=== PATIENT | male | born 1960 | race African-American/Black ===

== ENCOUNTER 2016-12-15 15:34 | Inpatient (IN) | payer OTHER ==
[2016-12-15 15:53] VITALS: BMI 29.0
--- NOTE | 2016-12-15 19:32 | HP ---
Admission [facility] Chief Complaint: REHAB SERVICES Allergies/Adverse Reactions: Allergies Allergy/AdvReac Type Severity Reaction Status Date / Time No Known Allergies Allergy Verified 12/15/16 19:05 History of Present Illness: 56 Y.O. MAN WITH A 7 YEAR HISTORY OF COCAINE DEPENDENCE IS HERE SEEKING REHAB SERVICES. HE DOES NOT HAVE A SIGNIFICANT PERIOD CLEAN. Exam Limitations: No Limitations - Ebola screening Have you traveled outside of the country in the last 21 days: No Have you had contact with anyone from an Ebola affected area: No Have you been sick,other than usual withdrawal symptoms: No Do you have a fever: No - Review of Systems Constitutional: Night Sweats, Changes in sleep EENT: reports: Blurred Vision Respiratory: reports: No Symptoms reported Cardiac: reports: Chest Pain GI: reports: Diarrhea, Abdominal cramping : reports: No Symptoms Reported Musculoskeletal: reports: Back Pain, Joint Pain, Neck Pain Integumentary: reports: No Symptoms Reported Neuro: reports: No Symptoms reported Endocrine: reports: No Symptoms Reported Hematology: reports: No Symptoms Reported Psychiatric: reports: Orientated x3, Depressed Other Systems: Reviewed and Negative Patient History - Patient Medical History Hx Anemia: No Hx Asthma: No Hx Chronic Obstructive Pulmonary Disease (COPD): No Hx Cancer: No Hx Cardiac Disorders: No Hx Congestive Heart Failure: No Hx Hypertension: Yes Hx Hypercholesterolemia: No Hx Pacemaker: No HX Cerebrovascular Accident: No Hx Seizures: No Hx Dementia: No Hx Diabetes: Yes Hx Gastrointestinal Disorders: No Hx Liver Disease: No Hx Genitourinary Disorders: No Hx Sexually Transmitted Disorders: No (Gonorrhea-treated) Hx Renal Disease (ESRD): No Hx Thyroid Disease: No Hx Human Immunodeficiency Virus (HIV): No Hx Hepatitis C: No Hx Depression: Yes Hx Suicide Attempt: Yes (2002: Attempted to overdose on medications ) Hx Bipolar Disorder: No Hx Schizophrenia: Yes - Patient Surgical History Past Surgical History: No - PPD History Previous Implant?: Yes Results: Needs CXR PPD to be Administered?: No - Reproductive History Patient is a Female of Child Bearing Age (11 -55 yrs old): No - Smoking Cessation Smoking history: Current every day smoker Have you smoked in the past 12 months: Yes Aproximately how many cigarettes per day: 5 Initiated information on smoking cessation: Yes 'Breaking Loose' booklet given: 12/15/16 - Substance & Tx. History Hx Alcohol Use: No Hx Substance Use: Yes Substance Use Type: Cocaine Hx Substance Use Treatment: Yes - Substances Abused Cocaine Route: Smoking Frequency: 3-6 times per week Amount used: $200 Age of first use: 49 Date of Last Use: 12/14/16 Family Disease History - Family Disease History Family Disease History: Diabetes: Father (), Mother (), Heart Disease: Father, Mother Admission Physical Exam [facility] - Vital Signs Vital Signs: Vital Signs - 24 hr 12/15/16 15:52 Temperature 98 F Pulse Rate 97 H Respiratory 18 Rate Blood Pressure 158/96 - Physical General Appearance: Yes: No Apparent Distress, Nourished, Appropriately Dressed HEENTM: Yes: Hearing grossly Normal, Normocephalic, Normal Voice, ALLY Respiratory: Yes: Chest Non-Tender, Lungs Clear, Normal Breath Sounds, No Respiratory Distress, No Accessory Muscle Use Neck: Yes: No masses,lesions,Nodules, Trachea in good position Breast: Yes: Breast Exam Deferred Cardiology: Yes: Regular Rhythm, Regular Rate Abdominal: Yes: Normal Bowel Sounds, Non Tender, Flat, Soft Genitourinary: Yes: Other (No complaints reported) Back: Yes: Normal Inspection Musculoskeletal: Yes: Back pain Extremities: Yes: Normal Inspection, Normal Range of Motion, Non-Tender Neurological: Yes: manufacturing executive II-XII NML intact, Fully Oriented, Normal Mood/Affect, Normal Response Integumentary: Yes: Normal Color, Dry, Warm Lymphatic: Yes: Within Normal Limits - Diagnostic (1) Cocaine dependence, uncomplicated Current Visit: Yes Status: Chronic (2) Osteoarthritis Current Visit: Yes Status: Chronic (3) Tuberculosis, treated Current Visit: Yes Status: Resolved (4) Sciatica Current Visit: Yes Status: Chronic Cleared for Admission [facility] - Detox or Rehab [facility] Level of Care: Observation Bed Claeared for Rehab Admission: Yes [facility] Breath Alcohol Content Breath Alcohol Content: 0 Urine Drug Screen - Results Drug Screen Negative: No Urine Drug Screen Results: JUAN DIEGO-Cocaine, PCP-Phencyclidine
[2016-12-15] MEDS ORDERED: MAGNESIUM CITRATE 300 ML BOTTLE PO PRN (19:41)
[2016-12-15] MEDS ORDERED: MENTHOL/PHENOL 1 EACH UD MM PRN (19:41)
[2016-12-15] MEDS ORDERED: P-EPHED 60MG/TRIPROLIDI 2.5MG TABLET PO PRN (19:41)
[2016-12-15] MEDS ORDERED: guaiFENesin/D-METHORPHAN HB 10 ML UNIT-DOSE CUPS PO PRN (19:41)
[2016-12-15] MEDS ORDERED: ACETAMINOPHEN 325 MG TABLET (FP) PO PRN (19:41)
[2016-12-15] MEDS ORDERED: hydrOXYzine PAMOATE 50 MG CAPSULE (FP) PO PRN (19:41)
[2016-12-15] MEDS ORDERED: MAG HYDROX/AL HYDROX/SIMETH 30 ML UNIT-DOSE CUP PO PRN (19:41)
[2016-12-15] MEDS ORDERED: IBUPROFEN 400 MG TABLET (FP) PO PRN (19:41)
[2016-12-15] MEDS ORDERED: NICOTINE POLACRILEX 2 MG GUM BUC PRN (19:41)
[2016-12-15] MEDS ORDERED: LOPERAMIDE HCL 2 MG CAPSULE PO PRN (19:41)
[2016-12-15] MEDS ORDERED: MAGNESIUM HYDROX 2400MG/30ML ORAL SUSPENSION 30 ML CUP PO PRN (19:41)
[2016-12-15] MEDS ORDERED: cloNIDine HCL 0.1 MG TABLET PO PRN (19:44)
[2016-12-15] MEDS: THIAMINE HCL 100 MG TABLET (FP) PO SCH (21:49)
[2016-12-15] MEDS: diphenhydrAMINE HCL 50 MG CAPSULE PO PRN (21:50)
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
[2016-12-16] MEDS ORDERED: BACITRACIN 15 GM TUBE TOPICAL OINTMENT TP SCH (10:00)
[2016-12-16] MEDS: ASPIRIN 81 MG CHEWABLE TABLETS PO SCH (10:22)
[2016-12-16] MEDS: PRENATAL VITAMINS W/ FOLIC ACID TABLET (FP) PO SCH (10:22)
[2016-12-16 13:13] LABS: MCH 26.9 pg (25.7-33.7); MCHC 31.4 g/dl (32.0-35.9); MEAN CELL VOLUME 85.7 fl (80-96); MEAN PLT VOLUME 8.9 fl (7.5-11.1); PLATELET COUNT 296 K/MM3 (134-434); RDW 13.9 % (11.9-15.9); WHITE BLOOD COUNT 7.2 K/mm3 (4.0-10.0)
[2016-12-16] MEDS: PATIENT'S OWN MEDICATION (NON-FORMULARY) (Sitagliptin Phos/Metformin Hcl [Janumet 50-1,000 PO SCH ×3 (13:32→16:52)
[2016-12-16 13:33] LABS: ALBUMIN 3.2 g/dl (3.4-5.0); ALK PHOS 81 U/L (45-117); ANION GAP 8 (8-16); BILIRUBIN,TOTAL 0.5 mg/dL (0.2-1.0); CALCIUM 9.3 mg/dL (8.5-10.1); CO2 30 mmol/L (21-32); CREATININE 1.4 mg/dL (0.7-1.3); GLUCOSE,RANDOM 204 mg/dL (74-106); SGOT/AST 19 U/L (15-37); SGPT/ALT 31 U/L (12-78); TOT PROT 6.8 g/dl (6.4-8.2)
[2016-12-16 13:39] LABS: HIV 1 & 2 AB NEGATIVE; HIV 1 AGp24 NEGATIVE
--- NOTE | 2016-12-16 14:50 | EKG ---
Test Reason : Blood Pressure : / mmHG Vent. Rate : 081 BPM Atrial Rate : 081 BPM P-R Int : 182 ms QRS Dur : 080 ms QT Int : 378 ms P-R-T Axes : 059 -06 032 degrees QTc Int : 439 ms NORMAL SINUS RHYTHM ST ELEVATION, CONSIDER EARLY REPOLARIZATION, PERICARDITIS, OR INJURY ABNORMAL ECG NO PREVIOUS ECGS AVAILABLE Confirmed by SOFÍA NELSON MD ([id number]) on 12/16/2016 2:49:45 PM Referred By: Confirmed By:SOFÍA NELSON MD
[2016-12-16] MEDS: diphenhydrAMINE HCL 50 MG CAPSULE PO PRN (21:12)
[2016-12-16] MEDS: THIAMINE HCL 100 MG TABLET (FP) PO SCH (21:12)
[2016-12-17] MEDS: PRENATAL VITAMINS W/ FOLIC ACID TABLET (FP) PO SCH (10:31)
[2016-12-17] MEDS: ASPIRIN 81 MG CHEWABLE TABLETS PO SCH (10:32)
[2016-12-17] MEDS: BACITRACIN 0.9 GM PACKET TP SCH (10:32)
--- NOTE | 2016-12-17 13:43 | PN ---
[facility] Progress Note Note: Hx. of HTN not on meds Vital Signs - 24 hr 12/17/16 12/17/16 12/17/16 00:30 03:30 07:02 Temperature 98.6 F Pulse Rate 85 Respiratory 18 18 20 Rate Blood Pressure 152/99 Laboratory Last Values WBC 7.2 K/mm3 (4.0-10.0) 12/15/16 09:30 RBC 4.93 M/mm3 (4.00-5.60) 12/15/16 09:30 Hgb 13.3 GM/dL (11.7-16.9) 12/15/16 09:30 Hct 42.3 % (35.4-49) 12/15/16 09:30 MCV 85.7 fl (80-96) 12/15/16 09:30 MCH 26.9 pg (25.7-33.7) 12/15/16 09:30 MCHC 31.4 g/dl (32.0-35.9) L 12/15/16 09:30 RDW 13.9 % (11.9-15.9) 12/15/16 09:30 Plt Count 296 K/MM3 (134-434) 12/15/16 09:30 MPV 8.9 fl (7.5-11.1) 12/15/16 09:30 Sodium 141 mmol/L (136-145) 12/15/16 09:00 Potassium 4.3 mmol/L (3.5-5.1) 12/15/16 09:00 Chloride 103 mmol/L (98-107) 12/15/16 09:00 Carbon Dioxide 30 mmol/L (21-32) 12/15/16 09:00 Anion Gap 8 (8-16) 12/15/16 09:00 BUN 12 mg/dL (7-18) 12/15/16 09:00 Creatinine 1.4 mg/dL (0.7-1.3) H 12/15/16 09:00 Creat Clearance w eGFR 52.42 (>60) 12/15/16 09:00 POC Glucometer 131 UNITS (()) 12/17/16 06:17 Random Glucose 204 mg/dL (74-106) H 12/15/16 09:00 Calcium 9.3 mg/dL (8.5-10.1) 12/15/16 09:00 Total Bilirubin 0.5 mg/dL (0.2-1.0) 12/15/16 09:00 AST 19 U/L (15-37) 12/15/16 09:00 ALT 31 U/L (12-78) 12/15/16 09:00 Alkaline Phosphatase 81 U/L (45-117) 12/15/16 09:00 Total Protein 6.8 g/dl (6.4-8.2) 12/15/16 09:00 Albumin 3.2 g/dl (3.4-5.0) L 12/15/16 09:00 RPR Titer Nonreactive (NONREACTIVE) 12/15/16 09:00 Hepatitis C Antibody <0.1 s/co ratio (0.0-0.9) 12/15/16 09:30 HIV 1&2 Antibody Screen Negative 12/16/16 09:00 HIV P24 Antigen Negative 12/16/16 09:00 labs noted P : Lisinopril 10mg bid
[2016-12-17] MEDS ORDERED: LISINOPRIL 10 MG TABLET (FP) PO SCH (13:45)
--- NOTE | 2016-12-17 15:40 | EKG ---
Test Reason : Blood Pressure : / mmHG Vent. Rate : 081 BPM Atrial Rate : 081 BPM P-R Int : 192 ms QRS Dur : 080 ms QT Int : 378 ms P-R-T Axes : 055 000 035 degrees QTc Int : 439 ms SINUS RHYTHM WITH PREMATURE SUPRAVENTRICULAR COMPLEXES AND PREMATURE VENTRICULAR COMPLEXES OR FUSION COMPLEXES POSSIBLE LEFT ATRIAL ENLARGEMENT NONSPECIFIC T WAVE ABNORMALITY ABNORMAL ECG WHEN COMPARED WITH ECG OF 16-DEC-2016 04:43, FUSION COMPLEXES ARE NOW PRESENT PREMATURE VENTRICULAR COMPLEXES ARE NOW PRESENT PREMATURE SUPRAVENTRICULAR COMPLEXES ARE NOW PRESENT ST NO LONGER ELEVATED IN LATERAL LEADS Confirmed by DUKE OVALLE MD ([id number]) on 12/17/2016 3:40:43 PM Referred By: Confirmed By:DUKE OVALLE MD
[2016-12-17] MEDS: PATIENT'S OWN MEDICATION (NON-FORMULARY) (Sitagliptin Phos/Metformin Hcl [Janumet 50-1,000 PO SCH (16:53)
[2016-12-17] MEDS: THIAMINE HCL 100 MG TABLET (FP) PO SCH (21:24)
[2016-12-17] MEDS: diphenhydrAMINE HCL 50 MG CAPSULE PO PRN ×2 (21:25→23:48)
[2016-12-18] MEDS: PRENATAL VITAMINS W/ FOLIC ACID TABLET (FP) PO SCH (10:27)
[2016-12-18] MEDS: ASPIRIN 81 MG CHEWABLE TABLETS PO SCH (10:28)
[2016-12-18] MEDS: BACITRACIN 0.9 GM PACKET TP SCH (10:28)
[2016-12-18] MEDS: PATIENT'S OWN MEDICATION (NON-FORMULARY) (Sitagliptin Phos/Metformin Hcl [Janumet 50-1,000 PO SCH (16:30)
[2016-12-18] MEDS: diphenhydrAMINE HCL 50 MG CAPSULE PO PRN (21:16)
[2016-12-18] MEDS: SUVOREXANT 10 MG TABLET PO PRN (21:16)
[2016-12-18] MEDS: THIAMINE HCL 100 MG TABLET (FP) PO SCH (21:17)
[2016-12-19] MEDS: BACITRACIN 0.9 GM PACKET TP SCH (10:55)
[2016-12-19] MEDS: PRENATAL VITAMINS W/ FOLIC ACID TABLET (FP) PO SCH (10:55)
[2016-12-19] MEDS: ASPIRIN 81 MG CHEWABLE TABLETS PO SCH (10:55)
[2016-12-19] MEDS ORDERED: PT OWN MED DRAWER 7, Y5N ONE (17:00)
[2016-12-19] MEDS: PATIENT'S OWN MEDICATION (NON-FORMULARY) (Sitagliptin Phos/Metformin Hcl [Janumet 50-1,000 PO SCH (17:07)
[2016-12-19] MEDS: THIAMINE HCL 100 MG TABLET (FP) PO SCH (21:16)
[2016-12-19] MEDS: diphenhydrAMINE HCL 50 MG CAPSULE PO PRN (21:16)
[2016-12-20] MEDS: SUVOREXANT 10 MG TABLET PO PRN (00:51)
[2016-12-20] MEDS: PRENATAL VITAMINS W/ FOLIC ACID TABLET (FP) PO SCH (10:16)
[2016-12-20] MEDS: BACITRACIN 0.9 GM PACKET TP SCH (10:16)
[2016-12-20] MEDS: ASPIRIN 81 MG CHEWABLE TABLETS PO SCH (10:16)
[2016-12-20] MEDS ORDERED: PT OWN MED DRAWER 7, Y5N ONE (16:14)
[2016-12-20] MEDS: PATIENT'S OWN MEDICATION (NON-FORMULARY) (Sitagliptin Phos/Metformin Hcl [Janumet 50-1,000 PO SCH (16:30)
[2016-12-20] MEDS: THIAMINE HCL 100 MG TABLET (FP) PO SCH (21:09)
[2016-12-21] MEDS: diphenhydrAMINE HCL 50 MG CAPSULE PO PRN (00:16)
[2016-12-21] MEDS ORDERED: SUVOREXANT 10 MG TABLET PO PRN (06:25)
[2016-12-21 06:53] VITALS: BP 153/96; PULSE 87; TEMP 98.5
[2016-12-21] MEDS: ASPIRIN 81 MG CHEWABLE TABLETS PO SCH (10:18)
[2016-12-21] MEDS: BACITRACIN 0.9 GM PACKET TP SCH (10:18)
[2016-12-21] MEDS: PRENATAL VITAMINS W/ FOLIC ACID TABLET (FP) PO SCH (10:19)
--- NOTE | 2016-12-21 14:00 | PN ---
S Progress Note Note: Patient walked off the unit without addressing staff and was discharged AMA
== END 2016-12-21 10:20 | disposition left against medical advice (07) | DRG 770 ==
LOC: YASAS 15:34 → UNDOADMIN 19:19 → Y5N 19:19 → Y3W 22:53
PROVIDERS: ADMIT Psychiatry & Neurology Psychiatry; ATTEND Psychiatry & Neurology Psychiatry
PROC: HZ42ZZZ Group Counseling for Substance Abuse Treatment, Cognitive-Behavioral (ICD-10-PCS; principal; 2016-12-15)
DX: F14.20 Cocaine dependence, uncomplicated (principal); F17.210 Nicotine dependence, cigarettes, uncomplicated; F32.9 Major depressive disorder, single episode, unspecified; F19.24 Other psychoactive substance dependence with psychoactive substance-induced mood disorder; M19.90 Unspecified osteoarthritis, unspecified site; M54.30 Sciatica, unspecified side; I10 Essential (primary) hypertension; E11.9 Type 2 diabetes mellitus without complications; R76.11 Nonspecific reaction to tuberculin skin test without active tuberculosis; Z87.438 Personal history of other diseases of male genital organs; Z91.5 Personal history of self-harm
CPT/HCPCS: 36415; 71020-TC; 80053; 85027; 86593; 86803; 87389; 93005; 93010

== ENCOUNTER 2021-09-23 11:10 | Inpatient (IN) | payer OTHER ==
[2021-09-23] MEDS ORDERED: MAG HYDROX/AL HYDROX/SIMETH 30 ML UNIT-DOSE CUP PO PRN (12:11)
[2021-09-23] MEDS ORDERED: guaiFENesin 200 MG/10 ML 10 ML UNIT-DOSE CUPS PO PRN (12:11)
[2021-09-23] MEDS ORDERED: LOPERAMIDE HCL 2 MG CAPSULE PO PRN (12:11)
[2021-09-23] MEDS ORDERED: P-EPHED 60MG/TRIPROLIDI 2.5MG TABLET PO PRN (12:11)
[2021-09-23] MEDS ORDERED: MAGNESIUM CITRATE 300 ML BOTTLE PO PRN (12:11)
[2021-09-23] MEDS ORDERED: ACETAMINOPHEN 325 MG TABLET (FP) PO PRN (12:11)
[2021-09-23] MEDS ORDERED: NICOTINE 10 MG CARTRIDGE (INHALER) IH PRN (12:11)
[2021-09-23] MEDS ORDERED: IBUPROFEN 400 MG TABLET (FP) PO PRN (12:11)
[2021-09-23] MEDS ORDERED: MAGNESIUM HYDROX 2400MG/30ML ORAL SUSPENSION 30 ML CUP PO PRN (12:11)
[2021-09-23 15:58] LABS: HEMATOCRIT 39.9 % (35.4-49); HEMOGLOBIN 12.6 GM/dL (11.7-16.9); MCH 26.4 pg (25.7-33.7); MCHC 31.5 g/dl (32.0-35.9); MEAN CELL VOLUME 83.6 fl (80-96); PLATELET COUNT 249 10^3/uL (134-434); RBC 4.77 M/mm3 (4.00-5.60); RDW 14.4 % (11.9-15.9); WHITE BLOOD COUNT 6.1 K/mm3 (4.0-10.0)
[2021-09-23 16:35] LABS: CALCIUM 8.9 mg/dL (8.5-10.1)
[2021-09-23 16:38] LABS: ALBUMIN 3.5 g/dl (3.4-5.0); BLOOD UREA NITROGEN 11.4 mg/dL (7-18)
[2021-09-23 16:39] LABS: CREATININE 1.3 mg/dL (0.55-1.3)
[2021-09-23 16:41] LABS: BILIRUBIN,TOTAL 0.5 mg/dL (0.2-1); TOT PROT 7.1 g/dl (6.4-8.2)
[2021-09-23 16:42] VITALS: BMI 30.9
[2021-09-23 17:15] LABS: SYPHILIS W/ RPR CONF REACTIVE (NONREACTIVE)
[2021-09-23] MEDS: hydrOXYzine PAMOATE 25 MG CAPSULE (FP) PO SCH ×3 (17:51→21:07)
[2021-09-23] MEDS: PRENATAL VITAMINS W/ FOLIC ACID TABLET (FP) PO SCH (17:52)
[2021-09-23] MEDS: NICOTINE 7 MG/24 HOURS TOPICAL PATCH TD SCH (17:52)
[2021-09-23] MEDS: amLODIPine BESYLATE 10 MG TABLET (FP) PO SCH (17:53)
[2021-09-23] MEDS: LISINOPRIL 10 MG TABLET PO SCH (17:53)
[2021-09-23] MEDS: GABAPENTIN 300 MG CAPSULE PO SCH (17:53)
[2021-09-23] MEDS ORDERED: METOPROLOL TARTRATE 25 MG TABLET (FP) PO ONE (20:51)
[2021-09-23] MEDS: THIAMINE HCL 100 MG TABLET (FP) PO SCH (21:06)
[2021-09-23] MEDS: MELATONIN 5 MG TABLETS PO SCH (21:07)
[2021-09-24] MEDS: GABAPENTIN 300 MG CAPSULE PO SCH ×2 (06:42→16:43)
[2021-09-24] MEDS: metFORMIN HCL 500 MG TABLET (FP) PO SCH ×2 (06:42→16:43)
[2021-09-24] MEDS: hydrOXYzine PAMOATE 25 MG CAPSULE (FP) PO SCH ×2 (07:08→10:05)
[2021-09-24] MEDS: amLODIPine BESYLATE 10 MG TABLET (FP) PO SCH (10:05)
[2021-09-24] MEDS: PRENATAL VITAMINS W/ FOLIC ACID TABLET (FP) PO SCH (10:05)
[2021-09-24] MEDS: NICOTINE 7 MG/24 HOURS TOPICAL PATCH TD SCH (10:05)
[2021-09-24] MEDS: LISINOPRIL 10 MG TABLET PO SCH (10:05)
[2021-09-24 10:17] LABS: URINE APPEARANCE CLEAR; URINE BILIRUBIN NEGATIVE (NEGATIVE); URINE COLOR YELLOW; URINE GLUCOSE (UA) NEGATIVE (NEGATIVE); URINE KETONE NEGATIVE (NEGATIVE); URINE LEUK ESTERASE NEGATIVE (NEGATIVE); URINE NITRITE NEGATIVE (NEGATIVE); URINE PROTEIN NEGATIVE (NEGATIVE)
[2021-09-24] MEDS: THIAMINE HCL 100 MG TABLET (FP) PO SCH (21:36)
[2021-09-24] MEDS: MELATONIN 5 MG TABLETS PO SCH (21:37)
[2021-09-25] MEDS: GABAPENTIN 300 MG CAPSULE PO SCH ×2 (06:29→16:23)
[2021-09-25] MEDS: metFORMIN HCL 500 MG TABLET (FP) PO SCH ×2 (06:29→16:23)
[2021-09-25] MEDS: LISINOPRIL 10 MG TABLET PO SCH (10:27)
[2021-09-25] MEDS: PRENATAL VITAMINS W/ FOLIC ACID TABLET (FP) PO SCH (10:27)
[2021-09-25] MEDS: amLODIPine BESYLATE 10 MG TABLET (FP) PO SCH (10:27)
[2021-09-25] MEDS: NICOTINE 7 MG/24 HOURS TOPICAL PATCH TD SCH (10:27)
[2021-09-25] MEDS: MELATONIN 5 MG TABLETS PO SCH (21:32)
[2021-09-25] MEDS: THIAMINE HCL 100 MG TABLET (FP) PO SCH (21:32)
[2021-09-25] MEDS: hydrOXYzine PAMOATE 25 MG CAPSULE (FP) PO PRN (21:33)
[2021-09-26] MEDS: metFORMIN HCL 500 MG TABLET (FP) PO SCH ×2 (06:29→20:08)
[2021-09-26] MEDS: GABAPENTIN 300 MG CAPSULE PO SCH ×2 (06:30→20:09)
[2021-09-26] MEDS: NICOTINE 7 MG/24 HOURS TOPICAL PATCH TD SCH (10:09)
[2021-09-26] MEDS: PRENATAL VITAMINS W/ FOLIC ACID TABLET (FP) PO SCH (10:09)
[2021-09-26] MEDS: LISINOPRIL 10 MG TABLET PO SCH (10:10)
[2021-09-26] MEDS: amLODIPine BESYLATE 10 MG TABLET (FP) PO SCH (10:10)
[2021-09-26] MEDS: THIAMINE HCL 100 MG TABLET (FP) PO SCH (21:30)
[2021-09-26] MEDS: MELATONIN 5 MG TABLETS PO SCH (21:30)
[2021-09-27] MEDS: metFORMIN HCL 500 MG TABLET (FP) PO SCH ×2 (07:11→16:56)
[2021-09-27] MEDS: GABAPENTIN 300 MG CAPSULE PO SCH ×2 (07:11→17:56)
[2021-09-27] MEDS: PRENATAL VITAMINS W/ FOLIC ACID TABLET (FP) PO SCH (11:07)
[2021-09-27] MEDS: amLODIPine BESYLATE 10 MG TABLET (FP) PO SCH (11:07)
[2021-09-27] MEDS: LISINOPRIL 10 MG TABLET PO SCH (11:07)
[2021-09-27] MEDS: NICOTINE 7 MG/24 HOURS TOPICAL PATCH TD SCH (11:08)
[2021-09-27] MEDS: hydrOXYzine PAMOATE 25 MG CAPSULE (FP) PO PRN (21:33)
[2021-09-27] MEDS: MELATONIN 5 MG TABLETS PO SCH (21:33)
[2021-09-27] MEDS: THIAMINE HCL 100 MG TABLET (FP) PO SCH (21:33)
[2021-09-28] MEDS: GABAPENTIN 300 MG CAPSULE PO SCH ×2 (07:05→18:26)
[2021-09-28] MEDS: metFORMIN HCL 500 MG TABLET (FP) PO SCH ×2 (07:07→17:04)
[2021-09-28] MEDS: PRENATAL VITAMINS W/ FOLIC ACID TABLET (FP) PO SCH (10:41)
[2021-09-28] MEDS: NICOTINE 7 MG/24 HOURS TOPICAL PATCH TD SCH (10:41)
[2021-09-28] MEDS: LISINOPRIL 10 MG TABLET PO SCH (10:41)
[2021-09-28] MEDS: amLODIPine BESYLATE 10 MG TABLET (FP) PO SCH (10:41)
[2021-09-28] MEDS: THIAMINE HCL 100 MG TABLET (FP) PO SCH (21:30)
[2021-09-28] MEDS: MELATONIN 5 MG TABLETS PO SCH (21:30)
[2021-09-28] MEDS: hydrOXYzine PAMOATE 25 MG CAPSULE (FP) PO PRN (21:31)
[2021-09-29] MEDS: GABAPENTIN 300 MG CAPSULE PO SCH ×2 (06:30→18:22)
[2021-09-29] MEDS: metFORMIN HCL 500 MG TABLET (FP) PO SCH ×2 (06:31→16:39)
[2021-09-29] MEDS: hydrOXYzine PAMOATE 25 MG CAPSULE (FP) PO PRN (06:32)
[2021-09-29] MEDS: amLODIPine BESYLATE 10 MG TABLET (FP) PO SCH (10:16)
[2021-09-29] MEDS: LISINOPRIL 10 MG TABLET PO SCH (10:16)
[2021-09-29] MEDS: PRENATAL VITAMINS W/ FOLIC ACID TABLET (FP) PO SCH (10:16)
[2021-09-29] MEDS: NICOTINE 7 MG/24 HOURS TOPICAL PATCH TD SCH (10:16)
[2021-09-29] MEDS: MELATONIN 5 MG TABLETS PO SCH (21:26)
[2021-09-29] MEDS: THIAMINE HCL 100 MG TABLET (FP) PO SCH (21:26)
[2021-09-30] MEDS: metFORMIN HCL 500 MG TABLET (FP) PO SCH ×2 (06:52→17:03)
[2021-09-30] MEDS: GABAPENTIN 300 MG CAPSULE PO SCH ×2 (06:52→17:03)
[2021-09-30] MEDS: LISINOPRIL 10 MG TABLET PO SCH (10:38)
[2021-09-30] MEDS: amLODIPine BESYLATE 10 MG TABLET (FP) PO SCH (10:38)
[2021-09-30] MEDS: NICOTINE 7 MG/24 HOURS TOPICAL PATCH TD SCH (10:38)
[2021-09-30] MEDS: PRENATAL VITAMINS W/ FOLIC ACID TABLET (FP) PO SCH (10:38)
[2021-09-30] MEDS: hydrOXYzine PAMOATE 25 MG CAPSULE (FP) PO PRN (21:24)
[2021-09-30] MEDS: MELATONIN 5 MG TABLETS PO SCH (21:24)
[2021-09-30] MEDS: THIAMINE HCL 100 MG TABLET (FP) PO SCH (21:24)
[2021-10-01] MEDS: GABAPENTIN 300 MG CAPSULE PO SCH ×2 (05:55→18:05)
[2021-10-01] MEDS: metFORMIN HCL 500 MG TABLET (FP) PO SCH ×2 (06:27→16:48)
[2021-10-01] MEDS: amLODIPine BESYLATE 10 MG TABLET (FP) PO SCH (10:53)
[2021-10-01] MEDS: PRENATAL VITAMINS W/ FOLIC ACID TABLET (FP) PO SCH (10:53)
[2021-10-01] MEDS: NICOTINE 7 MG/24 HOURS TOPICAL PATCH TD SCH (10:54)
[2021-10-01] MEDS: LISINOPRIL 10 MG TABLET PO SCH (10:54)
[2021-10-01] MEDS: MELATONIN 5 MG TABLETS PO SCH (21:38)
[2021-10-01] MEDS: THIAMINE HCL 100 MG TABLET (FP) PO SCH (21:38)
[2021-10-01] MEDS: BACITRACIN 0.9 GM PACKET TP SCH (21:39)
[2021-10-02] MEDS: GABAPENTIN 300 MG CAPSULE PO SCH ×2 (06:15→18:19)
[2021-10-02] MEDS: metFORMIN HCL 500 MG TABLET (FP) PO SCH ×2 (06:15→16:36)
[2021-10-02] MEDS: PRENATAL VITAMINS W/ FOLIC ACID TABLET (FP) PO SCH (10:29)
[2021-10-02] MEDS: LISINOPRIL 10 MG TABLET PO SCH (10:29)
[2021-10-02] MEDS: amLODIPine BESYLATE 10 MG TABLET (FP) PO SCH (10:29)
[2021-10-02] MEDS: BACITRACIN 0.9 GM PACKET TP SCH ×2 (10:30→21:07)
[2021-10-02] MEDS: NICOTINE 7 MG/24 HOURS TOPICAL PATCH TD SCH (10:30)
[2021-10-02] MEDS: THIAMINE HCL 100 MG TABLET (FP) PO SCH (21:07)
[2021-10-02] MEDS: MELATONIN 5 MG TABLETS PO SCH (21:07)
[2021-10-03] MEDS: metFORMIN HCL 500 MG TABLET (FP) PO SCH (06:34)
[2021-10-03] MEDS: GABAPENTIN 300 MG CAPSULE PO SCH (06:34)
[2021-10-03 07:01] VITALS: TEMP 97.5
[2021-10-03] MEDS: PRENATAL VITAMINS W/ FOLIC ACID TABLET (FP) PO SCH (09:53)
[2021-10-03] MEDS: LISINOPRIL 10 MG TABLET PO SCH (09:53)
[2021-10-03] MEDS: BACITRACIN 0.9 GM PACKET TP SCH (09:54)
[2021-10-03] MEDS: amLODIPine BESYLATE 10 MG TABLET (FP) PO SCH (09:54)
[2021-10-03] MEDS: NICOTINE 7 MG/24 HOURS TOPICAL PATCH TD SCH (09:54)
[2021-10-03] MEDS ORDERED: HYDROCORTISONE 1% TOPICAL CREAM 30 GM TUBE TP PRN (09:57)
[2021-10-03] MEDS ORDERED: HYDROCORTISONE 1% TOPICAL CREAM 30 GM TUBE TP SCH (10:00)
[2021-10-03 11:15] VITALS: BP 140/82; PULSE 101
== END 2021-10-03 10:45 | disposition home or self-care (01) | DRG 772 ==
LOC: YASAS 11:10 → Y5N 16:24
PROVIDERS: ADMIT Allergy & Immunology; ATTEND Psychiatry & Neurology Pain Medicine
PROC: HZ42ZZZ Group Counseling for Substance Abuse Treatment, Cognitive-Behavioral (ICD-10-PCS; principal; 2021-09-23)
DX: F14.20 Cocaine dependence, uncomplicated (principal); F16.20 Hallucinogen dependence, uncomplicated; F12.20 Cannabis dependence, uncomplicated; F17.210 Nicotine dependence, cigarettes, uncomplicated; G62.9 Polyneuropathy, unspecified; I10 Essential (primary) hypertension; E11.9 Type 2 diabetes mellitus without complications; Z79.84 Long term (current) use of oral hypoglycemic drugs; M17.0 Bilateral primary osteoarthritis of knee; M54.30 Sciatica, unspecified side; R94.31 Abnormal electrocardiogram [ECG] [EKG]; Z86.11 Personal history of tuberculosis; Z28.310 Unvaccinated for COVID-19; Z91.018 Allergy to other foods; Z56.0 Unemployment, unspecified; Z59.00 Homelessness unspecified
CPT/HCPCS: 36415; 71045-TC-FY; 80053; 81003; 82962; 83036; 85027; 86593; 86780; 86803; 93005; 93010; C9803-CS; U0003; U0005

== ENCOUNTER 2024-07-26 11:20 | Inpatient (IN) | payer OTHER ==
[2024-07-26 11:48] VITALS: BMI 26.4
[2024-07-26] MEDS ORDERED: IBUPROFEN 600 MG TABLET (FP) PO PRN (12:08)
[2024-07-26] MEDS ORDERED: hydrOXYzine PAMOATE 25 MG CAPSULE (FP) PO PRN (12:08)
[2024-07-26] MEDS ORDERED: POLYETHYLENE GLYCOL (HEALTHYLAX) 3350 17 GM PACKET PO PRN (12:08)
[2024-07-26] MEDS ORDERED: MAG HYDROX/AL HYDROX/SIMETH 30 ML UNIT-DOSE CUP PO PRN (12:08)
[2024-07-26] MEDS ORDERED: ACETAMINOPHEN 325 MG TABLET (FP) PO PRN (12:08)
[2024-07-26] MEDS ORDERED: NALOXONE (NARCAN) HCL 4 MG/0.1 ML SPRAY NS PRN (12:08)
[2024-07-26] MEDS ORDERED: BENZONATATE 200 MG CAPSULE PO PRN (12:08)
[2024-07-26] MEDS ORDERED: guaiFENesin 600 MG TABLET.ER (FP) PO PRN (12:08)
[2024-07-26] MEDS ORDERED: IBUPROFEN 400 MG TABLET (FP) PO PRN (12:08)
[2024-07-26] MEDS ORDERED: MAGNESIUM HYDROX 2400MG/30ML ORAL SUSPENSION 30 ML CUP PO PRN (12:08)
[2024-07-26] MEDS ORDERED: LOPERAMIDE HCL 2 MG CAPSULE PO PRN (12:08)
[2024-07-26] MEDS ORDERED: BENZOCAINE/MENTHOL (CHLORASEPTIC ) LOZENGE MM PRN (12:08)
[2024-07-26] MEDS ORDERED: LISINOPRIL 10 MG TABLET ONE (12:33)
[2024-07-26] MEDS: LISINOPRIL 10 MG TABLET PO SCH (12:35)
[2024-07-26 15:13] VITALS: TEMP 97.7
[2024-07-26] MEDS: cloNIDine HCL 0.1 MG TABLET PO PRN (15:58)
[2024-07-26] MEDS: metFORMIN HCL 500 MG TABLET (FP) PO SCH (18:41)
[2024-07-26 18:43] VITALS: BP 124/72; PULSE 96; RESP 18
[2024-07-26] MEDS ORDERED: ASPIRIN 81 MG CHEWABLE TABLETS ONE (18:47)
[2024-07-26] MEDS: ASPIRIN 81 MG CHEWABLE TABLETS PO ONE (18:49)
[2024-07-26] MEDS: MELATONIN 5 MG TABLETS PO SCH (21:55)
[2024-07-26] MEDS: MIRTAZAPINE 15 MG TABLET (FP) PO SCH (21:55)
[2024-07-26] MEDS: THIAMINE 100 MG TABLET PO SCH (21:56)
[2024-07-27] MEDS ORDERED: PRENATAL VITAMINS W/ FOLIC ACID TABLET (FP) PO SCH (10:00)
== END 2024-07-27 07:00 | disposition short-term general hospital (02) | DRG 772 ==
LOC: YASAS 11:20 → Y5N 12:38
PROVIDERS: ADMIT Allergy & Immunology; ATTEND Psychiatry & Neurology Pain Medicine
PROC: HZ42ZZZ Group Counseling for Substance Abuse Treatment, Cognitive-Behavioral (ICD-10-PCS; principal; 2024-07-26)
DX: F14.20 Cocaine dependence, uncomplicated (principal); F16.20 Hallucinogen dependence, uncomplicated; F17.210 Nicotine dependence, cigarettes, uncomplicated; G62.9 Polyneuropathy, unspecified; I10 Essential (primary) hypertension; E11.9 Type 2 diabetes mellitus without complications; Z79.84 Long term (current) use of oral hypoglycemic drugs; R79.89 Other specified abnormal findings of blood chemistry; R94.31 Abnormal electrocardiogram [ECG] [EKG]; Z86.11 Personal history of tuberculosis
CPT/HCPCS: 36415; 80305; 80307; 82550; 82553; 82962; 83036; 84484; 87811; 93005; 93010

== ENCOUNTER 2024-07-26 19:25 | Inpatient (IN) | payer OTHER ==
[2024-07-26 19:30] VITALS: TEMP 97.8; BMI 26.4
[2024-07-26 20:44] LABS: ABSOLUTE IMMATURE GRANULOCYTES 0.02 x10^3/uL (0.0-0.031); BASOPHILS # 0.06 x10^3/uL (0.01-0.08); EOSINOPHIL % 5.4 % (0.8-7.0); EOSINOPHILS # 0.34 x10^3/uL (0.04-0.54); HEMATOCRIT 39.8 % (40.1-51.0); HEMOGLOBIN 12.2 g/dL (13.7-17.5); MCHC 30.7 g/dl (32.3-36.5); MEAN PLT VOLUME 9.9 fl (9.4-12.4); MONOCYTE # 0.65 x10^3/uL (0.30-0.82); MONOCYTE % 10.3 % (5.3-12.2); PLATELET COUNT 296 x10^3/uL (163-337); RDW 15.1 % (12.2-16.4)
[2024-07-26] MEDS: ASPIRIN 81 MG CHEWABLE TABLETS PO ONE (20:44)
[2024-07-26 20:52] LABS: INR 1.11 (0.83-1.09); PROTHROMBIN TIME (PATIENT) 12.1 SEC (9.7-13.0)
[2024-07-26 20:55] LABS: ACTIVATED PTT 32.5 SECONDS (25.2-36.5)
[2024-07-26 21:09] LABS: BLOOD UREA NITROGEN 23.3 mg/dL (7-18)
[2024-07-26 21:12] LABS: CREATININE 1.3 mg/dL (0.55-1.3)
[2024-07-26 21:14] LABS: BILIRUBIN,TOTAL 0.3 mg/dL (0.2-1); TOT PROT 6.4 g/dl (6.4-8.2)
[2024-07-27] MEDS: ENOXAPARIN NA (PORCINE) 100 MG/1 ML DISP.SYRIN SQ ONE (00:32)
[2024-07-27] MEDS ORDERED: MELATONIN 5 MG TABLETS PO PRN (00:52)
[2024-07-27] MEDS: ASPIRIN 81 MG CHEWABLE TABLETS PO ONE ×2 (02:00→02:11)
[2024-07-27 02:04] VITALS: BP 138/84; PULSE 87; RESP 19
[2024-07-27] MEDS ORDERED: ASPIRIN 81 MG CHEWABLE TABLETS ONE (02:06)
[2024-07-27] MEDS: INSULIN ASPART SLIDING SCALE (NOVOLOG) 1 VIAL SQ SCH (06:51)
[2024-07-27] MEDS ORDERED: ENOXAPARIN NA (PORCINE) 40 MG/0.4 ML DISP.SYRIN SQ SCH (10:00)
[2024-07-27] MEDS: LISINOPRIL 10 MG TABLET PO SCH (10:26)
[2024-07-27] MEDS: THIAMINE 100 MG TABLET PO SCH (10:26)
[2024-07-27] MEDS: ENOXAPARIN NA (PORCINE) 100 MG/1 ML DISP.SYRIN SQ SCH (10:26)
[2024-07-27 11:14] LABS: MAGNESIUM 2.1 mg/dL (1.8-2.4)
[2024-07-27 11:18] LABS: PHOSPHOROUS 4.2 mg/dL (2.5-4.9)
[2024-07-27] MEDS ORDERED: QUEtiapine FUMARATE 200 MG TABLET PO SCH (22:00)
[2024-07-27] MEDS ORDERED: MIRTAZAPINE 15 MG TABLET (FP) PO SCH (22:00)
[2024-07-27] MEDS ORDERED: traZODone HCL 50 MG TABLET (FP) PO SCH (22:00)
== END 2024-07-27 10:29 | disposition left against medical advice (07) | DRG 770 ==
LOC: JER 19:25 → JERBED 23:25
PROVIDERS: ADMIT Internal Medicine; ATTEND Nurse Practitioner Acute Care
DX: F14.288 Cocaine dependence with other cocaine-induced disorder (principal); I21.A1 Myocardial infarction type 2; E11.9 Type 2 diabetes mellitus without complications; I10 Essential (primary) hypertension; E78.5 Hyperlipidemia, unspecified; F17.210 Nicotine dependence, cigarettes, uncomplicated; F32.A Depression, unspecified; M54.30 Sciatica, unspecified side
CPT/HCPCS: 36415; 71045-TC-FY; 80053; 80061; 83036; 83735; 83880; 84100; 84484; 85025; 85610; 85730; 86850; 86900; 86901; 93005; 93010; 99285-25